=== PATIENT | female | born 1975 | race Caucasian/White ===

== ENCOUNTER 2019-05-17 00:50 | Emergency (ER) | payer OTHER, BC ==
[~2019-05-17] VITALS: Ht 172.7 cm; Wt 68.0 kg
[~2019-05-17 00:50] MED LIST: ALBU2.5V8; ARIP2TAB8; BUPR150T6; DEXT15CA3; DOXY100C2; DULO60CA45; FLUT16SP
[2019-05-17 00:52] VITALS: BP 144/91
[2019-05-17] MEDS ORDERED: METH4TAB2 PO (01:25)
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
[2019-05-17] MEDS: KETOROLAC 60 MG/2 ML VIAL. IM ONE (01:35)
[2019-05-17] MEDS: DEXAMETHASONE SOD PHOS 4 MG/ML VIAL IM ONE (01:35)
== END 2019-05-17 01:39 | disposition home or self-care (01) ==
LOC: ER 00:50
DX: M25.512 Pain in left shoulder (principal); G89.29 Other chronic pain; R47.81 Slurred speech
CPT/HCPCS: 96372; 99284; J1100; J1885

== ENCOUNTER → 2019-06-02 | Outpatient (CLI) | payer OTHER, BC ==
[2019-05-17 00:52] VITALS: BP 144/91
[~2019-06-02] MED LIST changes: +ARIP2TAB17; -ARIP2TAB8; +BREO ELLIPTA 11 EACH IH; +DEXT15CA; -DEXT15CA3; +DEXT20TA2 PO; +IBUP-1060 PO; +IOHEXOL 180 MG/ML 10 ML VIAL. ONE; +METH4TAB2 PO; +methylPREDNISolone ACETATE 40 MG/ML VIAL. ONE; +methylPREDNISolone ACETATE 80 MG/ML VIAL. ONE
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
== END ==
LOC: PNCL 08:52
PROVIDERS: ATTEND Anesthesiology
DX: M50.123 Cervical disc disorder at C6-C7 level with radiculopathy (principal); F17.210 Nicotine dependence, cigarettes, uncomplicated; J45.909 Unspecified asthma, uncomplicated; Z72.89 Other problems related to lifestyle
CPT/HCPCS: 62321; J1030; J1040; Q9965

== ENCOUNTER → 2019-06-16 | Outpatient (CLI) | payer OTHER, BC ==
[2019-05-17 00:52] VITALS: BP 144/91
--- NOTE | 2019-06-16 10:03 | PAIN ---
DATE OF SERVICE: 06/16/2019 PROGRESS NOTE FOR PAIN CLINIC DIAGNOSES: Cervical radiculopathy with cervical degenerative disk disease. HISTORY OF PRESENT ILLNESS: The patient is a 43-year-old female who returns for followup status post cervical epidural steroid injection x 1. The patient reports about 60% improvement with the pain in her neck and left upper extremity. The patient reports she has been increasing her activity with greater ease and comfort, sleeping better, sitting up better, doing work activities, household activities, traveling with greater ease and comfort. There is still some pain in the base of neck and left shoulder, but doing much better. The patient reports it is a cramping pain now in the neck, aching, sharp and dull, shooting in the left shoulder and arm. The patient reports it is a 5 on a scale of 10 at its worst over the past week, 3 on average, 2 at its least and is 3 today. The patient reports no new motor or sensory deficits. She reports she had some puffiness in her face for about a week after injection. Otherwise, no new complaints. PHYSICAL EXAMINATION: VITAL SIGNS: The patient's blood pressure is 134/93, pulse 94, respirations 16, temperature 98.4 degrees Fahrenheit, weight is 146 pounds. GENERAL: The patient is awake, alert, oriented, appropriate, very pleasant demeanor. HEENT: Shows normocephalic, atraumatic. Extraocular movements are intact and symmetrical. Oral cavity: Mucous membranes moist and pink. Dentition is intact. NECK: Shows anterior throat supple without palpable lymphadenopathy noted. Swallow reflex symmetrical. CHEST: Shows normal on inspection. Breath sounds are clear bilaterally. HEART: Shows S1, S2 clear. No murmurs auscultated. ABDOMEN: Soft, nontender, nondistended. BACK: Shows spine grossly in the midline. Cervical paraspinous muscle shows symmetrical on inspection, on palpation shows some moderate tenderness diffusely, but only diffusely without significant radiation. EXTREMITIES: The patient's upper extremities show deep tendon reflexes at 2+ in the biceps and triceps tendons. Motor exam is strong with system sales consultant strength rated as 5/5 as is bicep and tricep flexion on the right and 4/5 on the left. Peripheral pulses are 2+ in radial distribution. No peripheral edema is noted. Options were discussed with the patient. The patient's old chart was reviewed as her current medication regimen updated. Current review of systems updated today as well. We will proceed with a second in the series cervical epidural steroid injection today with fluoroscopic guidance. Risks were again discussed including, but not limited to bleeding, infection, possibility of epidural hematoma, subsequent neurological compromise, dural puncture, headaches, spinal cord and/or nerve damage, side effects of steroid medication and poor results regarding pain control. The patient understands and wished to proceed. The patient will return to clinic in approximately 2 weeks for followup. She was counseled on return appointment, activity level and side effects to be aware of. DIAGNOSES: Cervical radiculopathy with cervical degenerative disk disease. PROCEDURE: Cervical epidural steroid injection, translaminar approach, at C6-C7 level using C-arm fluoroscopic guidance under sterile prep and drape using local anesthetic. MEDICATION INJECTED: A total of 120 mg of Depo-Medrol plus 5 mL of preservative-free normal saline and 2 mL of contrast. CONDITION AT DISCHARGE: Stable. The patient tolerated the procedure well, had no complications. ALEXX SALEH MD DR: SALLY/norman JOB#: [id number] / [id number]
== END ==
LOC: PNCL 09:10
PROVIDERS: ATTEND Anesthesiology
DX: M50.123 Cervical disc disorder at C6-C7 level with radiculopathy (principal)
CPT/HCPCS: 62321; J1030; J1040; Q9965; 62323

== ENCOUNTER → 2019-07-20 | Outpatient (CLI) | payer OTHER, BC ==
--- NOTE | 2019-07-20 11:08 | PAIN ---
DATE OF SERVICE: 07/20/2019 PROGRESS NOTE FOR PAIN CLINIC DIAGNOSES: Cervical radiculopathy with cervical degenerative disk disease. HISTORY OF PRESENT ILLNESS: The patient is a 43-year-old female who returns for followup status post cervical epidural steroid injections x 2. The patient reports about 60% improvement overall, but still significant pain in her left shoulder and upper extremity. The patient reports her father has recently within the last 2 weeks and it was a sudden occurrence, that she has been very emotionally distressed and this has caused the pain to be increased as well. The patient reports the pain is a 9 on a scale of 10 at its worst over the past week, 7 on average, 5 at its least and is a 7 today. The patient reports as aching sharp, dull in the base of the neck and shooting into the left shoulder, mostly posteriorly, but also in the left triceps and biceps as well. The patient reports it is tingling in the left fingers, all the fingers and also cramping and stabbing pain in the base of neck, especially turning to the left side. The patient reports no new motor or sensory deficits, no new changes, still significant pain. PHYSICAL EXAMINATION: VITAL SIGNS: The patient's blood pressure 137/90, pulse 87, respirations are 18, temperature 98.2 degrees Fahrenheit, weight is 151 pounds. GENERAL: The patient is awake, alert, oriented, appropriate, very pleasant demeanor. HEENT: Shows normocephalic, atraumatic. Extraocular movements are intact and symmetrical. Oral cavity: Mucous membranes moist and pink. Dentition is intact. NECK: Shows anterior throat supple without palpable lymphadenopathy noted. Swallow reflex symmetrical. CHEST: Shows normal on inspection. Breath sounds clear to auscultation bilaterally. HEART: Shows S1, S2 clear. No murmurs auscultated. ABDOMEN: Soft, nontender, nondistended. BACK: Shows spine grossly in the midline. Normal appearing thoracic kyphosis and lumbar lordotic curvature. Cervical lordotic curvature is slightly flattened with palpation cervical paraspinous muscle shows moderately tender, but its normal on inspection, this is true bilaterally, and more on the left side in the superior medial trapezius as well as inferior cervical paraspinous musculature without trigger points, without radiation or asymmetry. The patient has good rotational motion, somewhat guarded with left lateral rotation past 45 degrees, but is performed fully as well as right lateral rotation, extension and flexion. EXTREMITIES: The patient's upper extremities show deep tendon reflexes 2+ in the biceps and triceps tendons. Motor exam is approximately 4 on a scale 5 on the left and 5/5 on the right with software development coordinator strength, bicep and tricep flexion. Peripheral pulses are 2+ radial distribution. No peripheral edema is noted bilaterally. PLAN: Options were discussed with the patient. The patient's old chart was reviewed as her current medication regimen updated. Current review of systems updated today as well. We will proceed with a third in a series of cervical epidural steroid injection today with fluoroscopic guidance. Risks were again discussed including, but not limited to bleeding, infection, possibility of epidural hematoma, subsequent neurological compromise, dural puncture, headaches, spinal cord and/or nerve damage, side effects of steroid medication and poor results regarding pain control. The patient understands and wished to proceed. The patient will return to clinic in approximately 2 weeks for followup. She was counseled as to return appointment, activity level and side effects to be aware of. We did discuss the potential need for a neurosurgical evaluation if not significantly improved and the patient would like to follow up with her primary care physician to discuss this in further detail. DIAGNOSES: Cervical radiculopathy with cervical degenerative disk disease. PROCEDURE: Cervical epidural steroid injection, translaminar approach C6-C7 level using C-arm fluoroscopic guidance under sterile prep and drape using local anesthetic. MEDICATION INJECTED: A total of 120 mg Depo-Medrol plus 5 mL of preservative-free normal saline and 2 mL of contrast. CONDITION AT DISCHARGE: Stable. The patient tolerated the procedure well, had no complications. ALEXX SALEH MD DR: SALLY/norman JOB#: [id number] / [id number] MALGORZATA Degroot MD
== END ==
LOC: PNCL 09:04
PROVIDERS: ATTEND Anesthesiology
DX: M50.123 Cervical disc disorder at C6-C7 level with radiculopathy (principal)
CPT/HCPCS: 62321; J1030; J1040; Q9965